=== PATIENT | female | born 1980 | race Caucasian/White ===

== ENCOUNTER 2018-01-13 06:41 | Day surgery (SDC) | payer BC ==
[2018-01-10 13:25] LABS: BASOPHILS # (AUTO) 0.1 K/uL (0.0-0.2); BASOPHILS % (AUTO) 0.9 % (0.0-2.0); EOSINOPHILS # (AUTO) 0.2 K/uL (0.0-0.4); EOSINOPHILS % (AUTO) 2.2 % (0.0-4.0); HEMATOCRIT 43.3 % (36-48); HEMOGLOBIN 14.2 g/dL (12.0-16.0); LYMPHOCYTES % (AUTO) 35.9 % (20.5-51.5); MEAN CORPUSCULAR HEMOGLOBIN 28 pg (27-31); MEAN CORPUSCULAR HGB CONC 33 % (32-36); MEAN CORPUSCULAR VOLUME 85 fL (79.0-98.0); MONOCYTES # (AUTO) 0.4 K/uL (0.0-1.0); MONOCYTES % (AUTO) 4.5 % (1.7-9.3); NEUTROPHILS # (AUTO) 4.7 K/uL (1.8-7.7); NEUTROPHILS % (AUTO) 56.5 % (40.0-70.0); PLATELET COUNT (AUTO) 341 K/uL (130-430); RED BLOOD CELL COUNT(AUTO) 5.09 MIL/uL (4.2-6.2); RED CELL DISTRIBUTION WIDTH 12.7 % (9.0-15.0); WHITE BLOOD COUNT (AUTO) 8.4 K/uL (4.8-10.8)
[2018-01-10 13:27] LABS: BILIRUBIN,URINE NEGATIVE (NEGATIVE); BLOOD, URINE NEGATIVE (NEGATIVE); CLARITY/URINE CLEAR (CLEAR); COLOR,URINE YELLOW (YELLOW); GLUCOSE,URINE NEGATIVE (NEGATIVE); KETONES,URINE NEGATIVE (NEGATIVE); LEUKOCYTE ESTERASE ,URINE NEGATIVE (NEGATIVE); NITRITE, URINE NEGATIVE (NEGATIVE); PH,URINE 6.5 (5.0-8.0); PROTEIN URINE NEGATIVE (NEGATIVE); UROBILINOGEN,URINE 0.2 (0.2-1.0)
[2018-01-10 13:37] LABS: HCG,QUAL RESULT NEGATIVE (NEGATIVE)
[2018-01-10 13:43] LABS: CREATININE 0.59 mg/dL (0.55-1.30); POTASSIUM 3.8 mmol/L (3.5-5.1)
[2018-01-10 13:54] LABS: PROTHROMBIN TIME 10.2 SECS (9.5-12.5)
[2018-01-13] MEDS ORDERED: DEXAMETHASONE SOD PHOSPHATE 4 MG/ML VIAL ONE (09:30)
[2018-01-13] MEDS ORDERED: fentaNYL CITRATE/PF 100 MCG/2 ML AMP ONE (09:30)
[2018-01-13] MEDS ORDERED: SEVOFLURANE 15 MIN GAS INH ONE (09:30)
[2018-01-13] MEDS ORDERED: PROPOFOL 200MG/ 20ML VIAL (DIPRIVAN) IV ONE (09:30)
[2018-01-13] MEDS ORDERED: MIDAZOLAM HCL 5 MG/5 ML VIAL ONE (09:30)
[2018-01-13] MEDS ORDERED: KETOROLAC TROMETHAMINE 30 MG VIAL ONE (09:30)
[2018-01-13] MEDS ORDERED: LR 1,000 ML IV SCH (10:04)
[2018-01-13] MEDS ORDERED: MORPHINE 4 MG/ML INJ. SYRINGE IVP PRN ×3 (10:15)
[2018-01-13] MEDS ORDERED: METOCLOPRAMIDE HCL 10 MG/2 ML VIAL IVP PRN (10:15)
[2018-01-13] MEDS ORDERED: ONDANSETRON HCL 4 MG/2 ML VIAL IVP PRN (10:30)
[2018-01-13] MEDS ORDERED: IBUPROFEN 800 MG TABLET PO PRN (10:30)
[2018-01-13] MEDS ORDERED: OXYCODONE/ACETAMINOPHEN 5-325 TABLET PO PRN ×2 (10:30)
[2018-01-13] MEDS ORDERED: MORPHINE 4 MG/ML INJ. SYRINGE ONE (10:44)
[2018-01-13] MEDS ORDERED: OXYCODONE/ACETAMINOPHEN 5-325 TABLET ONE (11:36)
[2018-01-13 11:48] VITALS: BP_SYST 102
== END 2018-01-13 13:11 | disposition home or self-care (01) ==
LOC: SDS 06:41 → SMU 06:44 → SDS 13:11
PROVIDERS: ATTEND Obstetrics & Gynecology
DX: N93.8 Other specified abnormal uterine and vaginal bleeding (principal); Z87.891 Personal history of nicotine dependence; Z98.51 Tubal ligation status; N94.6 Dysmenorrhea, unspecified; N94.10 Unspecified dyspareunia; N84.0 Polyp of corpus uteri; Z72.89 Other problems related to lifestyle
CPT/HCPCS: 36415; 58558; 80048; 81003; 84703; 85025; 85610; 85730; 86886; 86900; 86901; 88305; J1100; J1885; J2250; J2270; J2704; J3010; J7120

== ENCOUNTER 2022-06-23 13:26 | Emergency (ER) | payer BC ==
[~2022-06-23] VITALS: Ht 154.9 cm; Wt 70.3 kg
[2022-06-23 13:56] VITALS: BP_SYST 136
--- NOTE | 2022-06-23 14:50 | NUR ---
ER Dr. Flynn in waiting room examining patient.
--- NOTE | 2022-06-23 15:20 | NUR ---
Patient to ER bed 05 for evaluation. Side rails up.
--- NOTE | 2022-06-23 15:23 | NUR ---
Assumed care of pt who came from home c/o crushed pinky finger to left hand. Pt states the finger was crushed between two pieces of luggage on . Pt states too busy to go to hospital at that time but pain has worsened. Denies bleeding, bruising, swelling. Pt is A&Ox4, calm, cooperative, in no signs of acute distress. Will continue to monitor and provide care as ordered.
[2022-06-23] MEDS ORDERED: IBUP-1969 PO (15:58)
--- NOTE | 2022-06-23 16:01 | NUR ---
finger splint applied to left 5th digit and secured with tape. pms present
--- NOTE | 2022-06-23 17:04 | NUR ---
Patient given written and verbal discharge instructions and verbalizes understanding. ER Dr. Gee GLOVER discussed with patient the results and treatment provided. Patient in stable condition. ID arm band removed. Patient educated on pain management and to follow up with PMD. Pain Scale 3/10. Opportunity for questions provided and answered. Medication side effect fact sheet provided.
== END 2022-06-23 17:04 | disposition home or self-care (01) ==
LOC: SED 13:26
DX: S63.657A Sprain of metacarpophalangeal joint of left little finger, initial encounter (principal); W23.1XXA Caught, crushed, jammed, or pinched between stationary objects, initial encounter; Y93.89 Activity, other specified; Y92.89 Other specified places as the place of occurrence of the external cause; Y99.8 Other external cause status
CPT/HCPCS: 73140-TC; 99283